=== PATIENT | male | born 1980 | race Caucasian/White ===

== ENCOUNTER → 2020-09-03 | Outpatient (CLI) | payer BC ==
--- NOTE | 2020-09-03 12:29 | US ---
EXAMINATION TYPE: US liver DATE OF EXAM: 09/03/2020 COMPARISON: NONE CLINICAL HISTORY: 40-year-old male R74.01 Elevated liver functions. TECHNIQUE: Multiple sonographic images of the right upper quadrant are obtained. FINDINGS: EXAM MEASUREMENTS: Liver Length: 19.8 cm Gallbladder Wall: 0.3cm CBD: 0.5 cm Right Kidney: 13.9 x 5.2 x 5.3 cm Refrigerating Engineer notes: Gross morbid obesity with extensive overlying bowel gas, technically difficult and very limited study. Pancreas: Obscured by bowel gas. Liver: unable to penetrate well, enlarged. This secondarily limits assessment for focal lesions. Gallbladder: possible sludge, difficult to assess due to patients size and overlying bowel gas CBD: wnl Right Kidney: Somewhat prominent in size, inferior pole obscured by bowel gas. No hydronephrosis. IMPRESSION: 1. Very large patient body habitus and bowel gas limits the exam. 2. Hepatomegaly (19.8 cm) with severe hepatic steatosis. Correlation with LFTs, lipid profile, and pa tient risk factors. 3. No biliary ductal dilatation. There may be some sludge in the gallbladder.
== END | disposition home or self-care (01) ==
LOC: RADUSWWP 08:03
PROVIDERS: ATTEND Family Medicine
DX: K76.0 Fatty (change of) liver, not elsewhere classified (principal); R14.3 Flatulence
CPT/HCPCS: 76705

== ENCOUNTER 2021-12-20 06:42 | Observation (INO) | payer BC ==
[2021-12-20 07:04] VITALS: TEMP 98.2
[2021-12-20] MEDS ORDERED: FAMOTIDINE 20 MG/2 ML VIAL IV STA (07:32)
[2021-12-20] MEDS ORDERED: diphenhydrAMINE 50 MG/ML 1 ML VIAL IVP STA (07:32)
[2021-12-20] MEDS ORDERED: methylPREDNISolone SOD SUCCI 125 MG/2 ML VIAL IV STA (07:32)
[2021-12-20] MEDS ORDERED: SODIUM CHLORIDE 0.9% 1,000 ML IV STA (07:32)
--- NOTE | 2021-12-20 07:41 | ED ---
General Adult HPI - General Chief complaint: ENT Stated complaint: Difficulty Breathing, Possible throat obstruction Time Seen by Provider: 12/20/21 07:19 Source: patient, RN notes reviewed, old records reviewed Mode of arrival: wheelchair - History of Present Illness Initial comments: Patient is a 41-year-old male with past medical history remarkable for hypertension, optic neuritis who presents emergency Department complaining of dysphagia. States it started this morning when he awoke. States it is worse when talking. Denies any shortness of breath. Denies any difficulty breathing. Denies any neck swelling. Denies sore throat. States this is not previously happened to him. Describes it as "I feel Trying to Swallow My Throat." He States He Does Have a History of Large Tonsils As Well As a Large Uvula. This Appears Unchanged. Denies Any Tongue Swelling. Is Not Continued to Drink Anything Morning. Denies Any Recent Dental Infections. Denies Any Fevers or Chills. Has No Other Acute Complaints at This Time. Patient Does Take Lisinopril for Blood Pressure Medication. Denies Any Lip Swelling. Patient is able to speak with me, however in short sentences. No obvious distress. - Related Data Home Medications Medication Instructions Recorded Confirmed Albuterol Inhaler [Ventolin Hfa 2 puff INHALATION RT-Q4H PRN 12/20/21 12/20/21 Inhaler] Cetirizine HCl [Zyrtec] 10 mg PO DAILY 12/20/21 12/20/21 Cholecalciferol [Vitamin D3 (25 50 mcg PO DAILY 12/20/21 12/20/21 Mcg = 1000 Iu)] Latanoprost [Xalatan 0.005%] 1 drop BOTH EYES HS 12/20/21 12/20/21 amLODIPine [Norvasc] 5 mg PO DAILY 12/20/21 12/20/21 lisinopriL [Zestril] 10 mg PO DAILY 12/20/21 12/20/21 Allergies Allergy/AdvReac Type Severity Reaction Status Date / Time No Known Allergies Allergy Verified 12/20/21 09:39 Review of Systems ROS Statement: Those systems with pertinent positive or pertinent negative responses have been documented in the HPI. Review of Systems: CONST: Denies fever EYES: Denies blurry vision ENT: Denies nasal congestion C/V: Denies Chest pain RESP: Denies shortness of breath GI: Denies abdominal pain : Denies dysuria SKIN: Denies rash. MSK: Denies joint pain. NEURO: Denies headache ROS Other: All systems not noted in ROS Statement are negative. Past Medical History Past Medical History: Hypertension History of Any Multi-Drug Resistant Organisms: None Reported Past Surgical History: No Surgical Hx Reported Past Psychological History: No Psychological Hx Reported Smoking Status: Never smoker Past Alcohol Use History: None Reported Past Drug Use History: None Reported General Exam - General Exam Comments Initial Comments: General: Appears in no acute distress. HEAD: Normal with no signs of head trauma. EYES: PERRLA, EOMI, conjunctiva normal, no discharge. ENT: Hearing grossly intact, normal oropharynx. No neck swelling. No tongue or floor of mouth swelling. No stridor on auscultation. Large, however but not obstructive uvula as well as bilateral tonsils. Patient states this is old. RESPIRATORY: Clear breath sounds bilaterally. No wheezes, rales, or rhonchi. C/V: Regular rate and rhythm. S1 and S2 auscultated, no edema, peripheral pulses 2+ and intact throughout ABD: Abd is soft, nontender, nondistended EXT: Normal range of motion, no obvious deformity SKIN: No rashes or lesions observed on exposed skin. NEURO: Alert and oriented 4. No focal deficits. Course Vital Signs 12/20/21 12/20/21 06:57 09:07 Temperature 98.2 F Pulse Rate 102 H 92 Respiratory 20 14 Rate Blood Pressure 118/69 148/99 O2 Sat by Pulse 99 98 Oximetry Medical Decision Making - Medical Decision Making Based on the patient's presentation and physical exam, he appears to be having isolated dysphasia at this time. Has not attempted to drink anything. No other obvious findings on exam. However we will obtain a CT soft tissue of the neck. He does have possibly a history of MS with a history of optic neuritis for CT brain also be obtained. Basic labs will be obtained. He'll be given IV steroids as well as Benadryl and famotidine. He was in agreement this plan .Patient is tolerating oral secretions and protecting his airway at this time. Patient's laboratory studies are relatively unremarkable. Chest x-ray shows no obvious acute cardiopulmonary process. Brain CT shows no acute intracranial process. Soft tissue neck CT with contrast is relatively indeterminant. This showed the enlarged nasal pharyngeal tonsil soft tissue, which patient states is chronic for him. No obvious esophageal abnormality. No obvious abnormality to explain his current symptoms. On reevaluation, patient is speaking a little bit better, however states he still has the sensation when he tries to swallow his secretions. I did attempt a small sip of water, which the patient states he had dysphagia as well as odynophagia with. Due to difficulty with swallowing, and my suspicion for possible achalasia with esophageal possibility like stricture, would like to obtain a GI consult will admit the patient to the hospital for likely EGD. He was in agreement this plan. I spoke with the admitting team, observation on-call team [facility] who accepted the patient. Consult was placed to Dr. Bruce. Was placed on maintenance fluids, and made nothing by mouth. Patient still tolerating his secretions at this time. - Lab Data Result diagrams: 12/20/21 07:40 12/20/21 07:40 Lab Results 12/20/21 12/20/21 Range/Units 07:40 07:40 WBC 7.1 (3.8-10.6) k/uL RBC 5.18 (4.30-5.90) m/uL Hgb 14.7 (13.0-17.5) gm/dL Hct 46.0 (39.0-53.0) % MCV 88.7 (80.0-100.0) fL MCH 28.3 (25.0-35.0) pg MCHC 31.9 (31.0-37.0) g/dL RDW 13.3 (11.5-15.5) % Plt Count 284 (150-450) k/uL MPV 7.4 Neutrophils % 52 % Lymphocytes % 35 % Monocytes % 8 % Eosinophils % 3 % Basophils % 1 % Neutrophils # 3.7 (1.3-7.7) k/uL Lymphocytes # 2.5 (1.0-4.8) k/uL Monocytes # 0.5 (0-1.0) k/uL Eosinophils # 0.2 (0-0.7) k/uL Basophils # 0.1 (0-0.2) k/uL Sodium 141 (137-145) mmol/L Potassium 4.2 (3.5-5.1) mmol/L Chloride 104 (98-107) mmol/L Carbon Dioxide 27 (22-30) mmol/L Anion Gap 10 mmol/L BUN 17 (9-20) mg/dL Creatinine 0.70 (0.66-1.25) mg/dL Est GFR (CKD-EPI)AfAm >90 (>60 ml/min/1.73 sqM) Est GFR (CKD-EPI)NonAf >90 (>60 ml/min/1.73 sqM) Glucose 169 H (74-99) mg/dL Calcium 9.7 (8.4-10.2) mg/dL Disposition Clinical Impression: Achalasia, Dysphagia Disposition: ADMITTED IP TO THIS HOSP Condition: Stable Time of Disposition: 08:50
[2021-12-20 07:57] LABS: Basophils # (A) 0.1 k/uL (0-0.2); Basophils % (A) 1 %; Eosinophils # (A) 0.2 k/uL (0-0.7); Eosinophils % (A) 3 %; HGB 14.7 gm/dL (13.0-17.5); Lymphocytes # (A) 2.5 k/uL (1.0-4.8); Lymphocytes % (A) 35 %; MCH 28.3 pg (25.0-35.0); MCHC 31.9 g/dL (31.0-37.0); MCV 88.7 fL (80.0-100.0); Mean Platelet Volume 7.4; Monocytes # (A) 0.5 k/uL (0-1.0); Monocytes % (A) 8 %; Neutrophils # (A) 3.7 k/uL (1.3-7.7); Neutrophils % (A) 52 %; Platelet Count 284 k/uL (150-450); RBC 5.18 m/uL (4.30-5.90); RDW 13.3 % (11.5-15.5); WBC 7.1 k/uL (3.8-10.6)
[2021-12-20 08:12] LABS: African American GFR (CKD) >90 (>60 ml/min/1.73 sqM); Anion Gap 10 mmol/L; Blood Urea Nitrogen 17 mg/dL (9-20); Calcium 9.7 mg/dL (8.4-10.2); Carbon Dioxide 27 mmol/L (22-30); Chloride 104 mmol/L (98-107); Glucose 169 mg/dL (74-99); Non-African American GFR(CKD) >90 (>60 ml/min/1.73 sqM); Potassium 4.2 mmol/L (3.5-5.1); Sodium 141 mmol/L (137-145)
--- NOTE | 2021-12-20 08:28 | CT ---
EXAMINATION TYPE: CT brain wo con DATE OF EXAM: 12/20/2021 COMPARISON: None HISTORY: 41-year-old male dysphagia, possible history of MS TECHNIQUE: Examination was done in axial plane without intravenous contrast. Coronal and sagittal r econstructions performed. CT DLP: 1058 mGycm Automated exposure control for dose reduction was used. FINDINGS: There is no evidence of acute intracranial hemorrhage, acute ischemic changes, mass, mass-effect, or extra-axial fluid collection. There is no effacement of cerebral sulci or basal subarachnoid cister ns. There is no hydrocephalus. There is no midline shift. Otdd-white matter distinction is preserv ed. 2.2 cm mucous retention cyst left maxillary sinus. Trace mucosal thickening anterior ethmoid air cell s. Mastoid air cells are well pneumatized. Orbits and globes are intact. IMPRESSION: No acute intracranial abnormality seen.
--- NOTE | 2021-12-20 08:29 | CT ---
EXAMINATION TYPE: CT soft tissue neck w con DATE OF EXAM: 12/20/2021 8:18 AM COMPARISON: None available HISTORY: dysphagia CT DLP: 1253.6 mGycm Automated exposure control for dose reduction was used. CONTRAST: CT scan of the neck is performed following with IV Contrast, patient injected with 100 mL of Isovue 3 00. Axial images are obtained, coronal and sagittal reformatted images are reviewed. FINDINGS: Thickened nasopharyngeal soft tissue, nonspecific and could be related to enlarged nasopharyngeal ton sils, please correlate clinically. Contracted pharyngeal wall with reduced caliber of the oropharynge al lumen, containing fluid within, possibly due to deglutition at the time of the scan. Underlying ph aryngeal lesion can't be excluded by this CT scan. Suboptimal assessment of the palatine tonsils. Unremarkable epiglottis. Slightly enlarged lingual ton sils. Unremarkable larynx, trachea and visualized portion of the esophagus. Unremarkable thyroid glan d. Symmetrical unremarkable parotid and submandibular salivary glands. Prominent subcentimeter bilateral cervical and submandibular lymph nodes, nonspecific. Patent major n cass vessels. Mucosal thickening of the maxillary sinuses. Unremarkable prevertebral soft tissue. No a ggressive bone lesion. IMPRESSION: Enlarged nasopharyngeal soft tissue likely due to enlarged nasopharyngeal tonsils. Apparently enlarge d lingual tonsils. Suboptimal assessment of the oropharynx containing fluid within, with suboptimal a ssessment of the palatine tonsils as described above. Underlying pharyngeal abnormality cannot be exc luded by this CT scan, please correlate clinically. Other incidental findings as described above.
--- NOTE | 2021-12-20 08:29 | XR ---
EXAMINATION TYPE: XR chest 1V DATE OF EXAM: 12/20/2021 COMPARISON: NONE HISTORY: 41-year-old male with dysphagia, throat swelling TECHNIQUE: Single frontal view of the chest is obtained. FINDINGS: Heart upper limits of normal in size. Aorta and pulmonary vasculature within normal limits. Some stra ndy atelectasis of the left lower lung. Otherwise, no consolidation or pleural effusion. IMPRESSION: Borderline heart size. Some strandy atelectasis of the left lower lung. Otherwise, no acute process s een.
[2021-12-20] MEDS ORDERED: NALOXONE 0.4 MG/ML 1 ML VIAL IV PRN (08:59)
[2021-12-20] MEDS ORDERED: SODIUM CHLORIDE 0.9% 1,000 ML IV SCH (09:00)
--- NOTE | 2021-12-20 11:08 | P.CONS ---
History of Present Illness - Reason for Consult Consult date: 12/20/21 Dysphagia, achalasia Requesting physician: Lyle Mckeon - Chief Complaint Difficulty breathing, difficulty swallowing - History of Present Illness This is a 41-year-old male who presented to the emergency department this morning with complaints of feeling as though his neck and throat were swollen, having some difficulty with swallowing but does go down, and cough. Past medical history includes optic neuritis, obstructive sleep apnea with recent CPAP use, and orbit obesity. States he is having difficult time clearing his throat. He is denying any previous similar symptoms. No new medications. Denies any history of peptic ulcer disease, GERD, dysphagia. Gastroenterology was consulted to evaluate patient for possible achalasia, dysphagia. Patient denies any previous history of EGD or colonoscopy. His heart as his workup in the emergency department he underwent a CT of the soft tissue of the neck with contrast that showed enlarged nasopharyngeal soft tissue likely due to enlarged nasopharyngeal tonsils. Underlying pharyngeal abnormality cannot be excluded by this CT. Review of Systems REVIEW OF SYSTEMS: CARDIOPULMONARY: No chest pain. Complains of some difficulty with breathing, has cough that he feels he is unable to clear his airway. Gastrointestinal: No acid reflux or burning. Difficulty with swallowing but feels as though it's in his throat and neck. No esophageal discomfort. No abdominal pain or epigastric pain. No nausea or vomiting. No hematemesis, coffee-ground emesis. No rectal bleeding, or melena. GENITOURINARY: No dysuria or hematuria. MUSCULOSKELETAL: Reports normal range of motion., Joint pain. SKIN: No rashes. No jaundice. ENDOCRINE: No chills, fevers. No excessive weight gain or loss. No polydipsia or polyuria. PSYCHIATRIC: Unremarkable. NEUROLOGY: No change in mental status. Denies dizziness, headache. ENT: Vision unremarkable. CONSTITUTIONAL: No recent weight loss. No fever, chills, night sweats. Past Medical History Past Medical History: Hypertension History of Any Multi-Drug Resistant Organisms: None Reported Past Surgical History: No Surgical Hx Reported Past Psychological History: No Psychological Hx Reported Smoking Status: Never smoker Past Alcohol Use History: None Reported Past Drug Use History: None Reported Medications and Allergies Home Medications Medication Instructions Recorded Confirmed Type Albuterol Inhaler [Ventolin Hfa 2 puff INHALATION RT-Q4H PRN 12/20/21 12/20/21 History Inhaler] Cetirizine HCl [Zyrtec] 10 mg PO DAILY 12/20/21 12/20/21 History Cholecalciferol [Vitamin D3 (25 50 mcg PO DAILY 12/20/21 12/20/21 History Mcg = 1000 Iu)] Latanoprost [Xalatan 0.005%] 1 drop BOTH EYES HS 12/20/21 12/20/21 History amLODIPine [Norvasc] 5 mg PO DAILY 12/20/21 12/20/21 History lisinopriL [Zestril] 10 mg PO DAILY 12/20/21 12/20/21 History Allergies Allergy/AdvReac Type Severity Reaction Status Date / Time No Known Allergies Allergy Verified 12/20/21 09:39 Physical Exam Vitals: Vital Signs Temp Pulse Resp BP Pulse Ox 12/20/21 09:07 92 14 148/99 98 12/20/21 06:57 98.2 F 102 H 20 118/69 99 Intake and Output 12/19/21 12/20/21 12/20/21 22:59 06:59 14:59 Other: Weight 199.581 kg General appearance: The patient is alert, oriented, appears in no acute distress. Morbidly obese. HET: Head is normocephalic and atraumatic. Conjunctiva pink. Sclera anicteric. Neck: Supple without lymphadenopathy. Trachea midline. Heart: S1 S2. Regular rate and rhythm. Lungs: Clear to auscultation. Abdomen: Soft, nontender, nondistended with bowel sounds. No guarding or rigidity. Skin: No rashes. No jaundice. Extremities: Normal skin color and turgor. No pedal edema. Neurological: No focal deficits. Alert and oriented x3. Results CBC & Chem 7: 12/20/21 07:40 12/20/21 07:40 Labs: Abnormal Lab Results - Last 24 Hours (Table) 12/20/21 Range/Units 07:40 Glucose 169 H (74-99) mg/dL Comments: CT soft tissue neck with contrast: Enlarged nasopharyngeal soft tissues likely due to enlarged nasopharyngeal tonsils. Apparently enlarged lingual tonsils. Suboptimal assessment of the oropharynx containing fluid within, with suboptimal assessment of the palatine tonsils as described above. Underlying pharyngeal abnormality cannot be excluded by this computed tomography scan please correlate clinically. CT brain: No acute intracranial abnormality seen. Assessment and Plan (1) Dysphagia Narrative/Plan: 41-year-old male who presented to the emergency department with complaints of difficulty with breathing, throat swelling and cough and difficulty with swallowing. Patient states it feels like his throat is full he is unable to clear his secretions with his cough and feels like difficulty with swallowing but at the level of the throat. He denies any history of acid reflux, peptic ulcer disease, denies any pain with swallowing within the esophageal region. S tates he is able to swallow liquids but it does take some time to get it down at the back of the throat. Denies any previous history of nasopharyngeal dysfunction. States he does know that he has enlarged tonsils but does not follow with an ENT. Denies any new medications or ALLERGIC reactions. Denies abdominal pain or epigastric pain. He had a CT of the soft tissue of the neck that is showing a large nasopharyngeal soft tissue likely due to enlarged nasopharyngeal tonsils however underlying pharyngeal abnormality cannot be excluded by computed tomography scan. I do not believe at this time patient is requiring evaluation by EGD and would recommend ENT to first evaluate patient for possible nasopharyngeal obstruction/abnormality. Current Visit: Yes Status: Acute Code(s): R13.10 - DYSPHAGIA, UNSPECIFIED SNOMED Code(s): 98584170 (2) Morbidly obese Current Visit: Yes Status: Acute Code(s): E66.01 - MORBID (SEVERE) OBESITY DUE TO EXCESS CALORIES SNOMED Code(s): 517876482 (3) Localized soft tissue swelling Narrative/Plan: Recommend ENT consultation and evaluation for enlarged nasopharyngeal soft tissue possible underlying pharyngeal abnormality Current Visit: Yes Status: Acute Code(s): R22.9 - LOCALIZED SWELLING, MASS AND LUMP, UNSPECIFIED SNOMED Code(s): 701283037 (4) Obstructive sleep apnea on CPAP Current Visit: Yes Status: Acute Code(s): G47.33 - OBSTRUCTIVE SLEEP APNEA (ADULT) (PEDIATRIC); Z99.89 - DEPENDENCE ON OTHER ENABLING MACHINES AND DEVICES SNOMED Code(s): 92378041 Plan: 1. Keep nothing by mouth 2. ENT consultation ordered, appreciate their recommendations 3. Protonix 40 mg daily GI prophylaxis 4. No plans on endoscopic evaluation at this time, further recommendations forthcoming based on clinical course Thank you for this consultation, we will continue to follow. Dr. Yuridia Bruce I agree with the dictator's note, documented as a scribe by Sherrell Mata.
--- NOTE | 2021-12-20 15:05 | P.HPIM ---
History of Present Illness H&P Date: 12/20/21 History of Presenting Illness: Patient is a very pleasant 41-year-old male with a past medical history of hypertension, morbid obesity and obstructive sleep apnea CPAP dependent nightly. He presented to the emergency department with a chief complaint of dysphagia. Patient reports this began initially happening throughout the night when he recently got his new CPAP machine. Patient reports it feels as though he is being choked and suffocated while sleeping. Patient reports he has not adjusting to it very well. Patient reports last night he began again having these difficulties and took some cold medicine as he thought maybe he was just getting congested and that would help. Patient reports however this morning upon awakening he felt as though he could not swallow as his throat was closing in on itself. Patient denies any recent medication changes, reports being on lisinopril greater than 1 year and never having any difficulties. Patient also reports he takes his medication in the morning and did not begin having these issues until after putting his CPAP on overnight. Patient denies any new foods or previously known ALLERGIES. He denied experiencing any face, tongue, or lip swelling or noticing any rashes. Patient denied feeling short of breath, having chest pain, palpitations, or experiencing any nausea/vomiting. Patient does report previously known enlarged tonsils. Currently airway is patent, patient denies difficulties with maintaining airway or clearing secretions. Upon arrival to the emergency department patient was given cocktail consisting of Solu-Medrol, Pepcid, and Benadryl. Chest x-ray completed revealing some strandy atelectasis of left lower lung otherwise negative for acute cardiopulmonary process. CT brain negative for acute intercranial process. CBC and BMP unremarkable. He underwent CT soft tissues of neck which revealed a large nasopharyngeal soft tissue likely due to a large nasopharyngeal tonsils accompanied by and large lingual tonsils, suboptimal study. Patient was admitted under our services with consult to gastroenterology. Review of systems: Pertinent positives and negatives as discussed in HPI, a complete review of systems was performed and all other systems are negative. Physical exam: Vital signs reviewed and stable. General: Nontoxic, no distress and appears stated age. Morbidly obese Derm: Skin warm and dry, normal coloration for ethnicity. Head: Atraumatic, normocephalic and symmetric. Upon examination of oropharynx, patient with elongated uvula and enlarged tonsils bilaterally Eyes: EOMs intact, no lid lag, and anicteric sclera Mouth: no lip lesions, mucus membranes moist Cardiovascular: regular rate and rhythm with normal S1S2, no murmur, positive posterior tibial pulses bilaterally, and cap refill < 2 seconds. Lungs: Respirations even, regular, and unlabored on room air. Lungs CTA bilaterally, no rhonchi, no rales, no wheezing, and no accessory muscle usage. Abdominal: soft, nontender to palpation, no guarding, no appreciable organomegaly Ext: ROM intact. No gross muscle atrophy, no edema, no contractures Neuro: Speech clear, face symmetrical and CN II-XII grossly intact with no noted focal neuro deficits Psych: Alert and oriented to person, place, time, and situation. Appropriate and pleasant affect. Assessment and Plan of Care: Dysphagia -NPO until cleared by GI. -Patient will likely need follow-up outpatient with ENT to be evaluated for possible tonsillectomy. -Aspiration precautions -PO challenge once cleared by GI. Hypertension -Monitor vital signs and continue daily medication regimen. Obstructive sleep apnea -Continue use of home CPAP nightly and while napping. Morbid obesity with BMI 55.0 kg/m. -Recommend outpatient weight management program. The patient is admitted with an anticipated less than 2 midnight stay for evaluation of dysphagia. CODE STATUS: Full code DVT prophylaxis: SCDs and early ambulation Discussed with: Patient and RN Anticipated discharge date: Possibly later this afternoon versus tomorrow morning Anticipated discharge place: Home A total of 40 minutes was spent on the care of this complex patient more than 50% of the time was spent in counseling and care coordination. Past Medical History Past Medical History: Hypertension History of Any Multi-Drug Resistant Organisms: None Reported Past Surgical History: No Surgical Hx Reported Past Psychological History: No Psychological Hx Reported Smoking Status: Never smoker Past Alcohol Use History: None Reported Past Drug Use History: None Reported Medications and Allergies Home Medications Medication Instructions Recorded Confirmed Type Albuterol Inhaler [Ventolin Hfa 2 puff INHALATION RT-Q4H PRN 12/20/21 12/20/21 History Inhaler] Cetirizine HCl [Zyrtec] 10 mg PO DAILY 12/20/21 12/20/21 History Cholecalciferol [Vitamin D3 (25 50 mcg PO DAILY 12/20/21 12/20/21 History Mcg = 1000 Iu)] Latanoprost [Xalatan 0.005%] 1 drop BOTH EYES HS 12/20/21 12/20/21 History amLODIPine [Norvasc] 5 mg PO DAILY 12/20/21 12/20/21 History lisinopriL [Zestril] 10 mg PO DAILY 12/20/21 12/20/21 History Allergies Allergy/AdvReac Type Severity Reaction Status Date / Time No Known Allergies Allergy Verified 12/20/21 09:39 Physical Exam Vitals: Vital Signs Temp Pulse Resp BP Pulse Ox 12/20/21 09:07 92 14 148/99 98 12/20/21 06:57 98.2 F 102 H 20 118/69 99 Intake and Output 12/19/21 12/20/21 12/20/21 22:59 06:59 14:59 Other: Weight 199.581 kg Results CBC & Chem 7: 12/20/21 07:40 12/20/21 07:40 Labs: Abnormal Lab Results - Last 24 Hours (Table) 12/20/21 Range/Units 07:40 Glucose 169 H (74-99) mg/dL
--- NOTE | 2021-12-20 15:08 | P.DS ---
Providers Date of admission: 12/20/21 08:59 Expected date of discharge: 12/20/21 Attending physician: Nata Redding DO Consults: 12/20/21 09:00 Consult Physician Routine Consulting Provider: Christy Bruce Consult Reason/Comments: Achalasia, dysphagia. EGD Do you want consulting provider notified?: Yes 12/20/21 10:47 Consult Physician Urgent Consulting Provider: Victor M Andrews Consult Reason/Comments: possible airway obstruction, enlarged nasopharyngeal soft tissue on CT Do you want consulting provider notified?: Yes Primary care physician: Ethan Cantuqvi Hospital Course: Discharge Diagnosis: Dysphagia, possibly secondary to enlarged tonsils and elongated uvula (patient reports chronic), recommend outpatient follow-up with ENT Hypertension. Monitor vital signs and continue daily medication regimen with amlodipine and lisinopril. Obstructive sleep apnea. Continue use of home CPAP nightly and while napping. Morbid obesity with BMI 55.0 kg/m.. Recommend outpatient weight management program. Hospital Course: Patient is a very pleasant 41-year-old male with a past medical history of hypertension, morbid obesity and obstructive sleep apnea CPAP dependent nightly. He presented to the emergency department with a chief complaint of dysphagia. Patient reports this began initially happening throughout the night when he recently got his new CPAP machine. Patient reports it feels as though he is being choked and suffocated while sleeping. Patient reports he has not adjusting to it very well. Patient reports last night he began again having these difficulties and took some cold medicine as he thought maybe he was just getting congested and that would help. Patient reports however this morning upon awakening he felt as though he could not swallow as his throat was closing in on itself. Patient denies any recent medication changes, reports being on lisinopril greater than 1 year and never having any difficulties. Patient also reports he takes his medication in the morning and did not begin having these is sues until after putting his CPAP on overnight. Patient denies any new foods or previously known ALLERGIES. He denied experiencing any face, tongue, or lip swelling or noticing any rashes. Upon arrival to the emergency department patient was given cocktail consisting of Solu-Medrol, Pepcid, and Benadryl. Chest x-ray completed revealing some strandy atelectasis of left lower lung otherwise negative for acute cardiopulmonary process. CT brain negative for acute intercranial process. CBC and BMP unremarkable. He underwent CT soft tissues of neck which revealed a large nasopharyngeal soft tissue likely due to a large nasopharyngeal tonsils accompanied by and large lingual tonsils, suboptimal study. Patient was admitted under our services with consult to gastroenterology. Patient reports having significant improvement and upon bedside exam has no difficulties with swallowing at this time. Patient's swallowing clear liquids, and tolerating regular diet. Patient requesting to follow up outpatient with ENT. This was discussed with gastroenterology and they are in agreement with outpatient follow-up. Patient is medically stable for discharge home, airway is patent, patient denies having any difficulties with breathing, swallowing, or any other complaints at this time. Patient encouraged that he needs to follow up outpatient with ENT as recommended. Physical examination: Patient seen and examined at bedside. Vital signs reviewed and stable. General: Nontoxic, no distress and appears stated age. Morbidly obese Derm: Skin warm and dry, normal coloration for ethnicity. Head: Atraumatic, normocephalic and symmetric. Upon examination of oropharynx, patient with elongated uvula and enlarged tonsils bilaterally Eyes: EOMs intact, no lid lag, and anicteric sclera Mouth: no lip lesions, mucus membranes moist Cardiovascular: regular rate and rhythm with normal S1S2, no murmur, positive posterior tibial pulses bilaterally, and cap refill < 2 seconds. Lungs: Respirations even, regular, and unlabored on room air. Lungs CTA bilaterally, no rhonchi, no rales, no wheezing, and no accessory muscle usage. Abdominal: soft, nontender to palpation, no guarding, no appreciable organomegaly Ext: ROM intact. No gross muscle atrophy, no edema, no contractures Neuro: Speech clear, face symmetrical and CN II-XII grossly intact with no noted focal neuro deficits Psych: Alert and oriented to person, place, time, and situation. Appropriate and pleasant affect. A total of 31 minutes of time were spent preparing this complex discharge summary. Pt was discharged on 12/20/21 at 2:57 PM Patient Condition at Discharge: Stable Plan - Discharge Summary New Discharge Prescriptions: Continue Cetirizine HCl [Zyrtec] 10 mg PO DAILY amLODIPine [Norvasc] 5 mg PO DAILY Latanoprost [Xalatan 0.005%] 1 drop BOTH EYES HS lisinopriL [Zestril] 10 mg PO DAILY Cholecalciferol [Vitamin D3 (25 Mcg = 1000 Iu)] 50 mcg PO DAILY Albuterol Inhaler [Ventolin Hfa Inhaler] 2 puff INHALATION RT-Q4H PRN PRN Reason: Shortness Of Breath Discharge Medication List Albuterol Inhaler [Ventolin Hfa Inhaler] 2 puff INHALATION RT-Q4H PRN 12/20/21 [History] Cetirizine HCl [Zyrtec] 10 mg PO DAILY 12/20/21 [History] Cholecalciferol [Vitamin D3 (25 Mcg = 1000 Iu)] 50 mcg PO DAILY 12/20/21 [History] Latanoprost [Xalatan 0.005%] 1 drop BOTH EYES HS 12/20/21 [History] amLODIPine [Norvasc] 5 mg PO DAILY 12/20/21 [History] lisinopriL [Zestril] 10 mg PO DAILY 12/20/21 [History] Follow up Appointment(s)/Referral(s): Ethan Andrews MD [Primary Care Provider] - 1-2 days Victor M Andrews MD [STAFF PHYSICIAN] - 1 Week Activity/Diet/Wound Care/Special Instructions: Activity: As tolerated. Take breaks as needed. Diet: Heart healthy and carb consistent diet. Avoid salts, or foods with hidden salts such as canned or boxed foods and frozen dinners. Extra salt makes your heart work harder and traps the fluid in your body for longer. Special Instructions: Take all of your medications as directed and remember to keep all of your doctor's appointments and follow-up as needed. It is important to follow up outpatient with ENT physician Dr. Andrews. Thank you for allowing us to participate in your care, it was truly a pleasure having you for our patient!!! Discharge Disposition: HOME SELF-CARE
[2021-12-20 15:16] VITALS: BP 138/99; PULSE 103; RESP 14
[2021-12-21] MEDS ORDERED: PANTOPRAZOLE 40 MG/10 ML VIAL IVP SCH (09:00)
== END 2021-12-20 15:28 | disposition home or self-care (01) ==
LOC: EC 06:42 → 6NMEDSUR 08:59
PROVIDERS: ADMIT Internal Medicine; ATTEND Internal Medicine
DX: R13.10 Dysphagia, unspecified (principal); G47.33 Obstructive sleep apnea (adult) (pediatric); I10 Essential (primary) hypertension; J35.1 Hypertrophy of tonsils; Q38.6 Other congenital malformations of mouth; J39.2 Other diseases of pharynx; K22.0 Achalasia of cardia; J98.11 Atelectasis; H46.9 Unspecified optic neuritis; E66.01 Morbid (severe) obesity due to excess calories; Z68.43 Body mass index [BMI] 50.0-59.9, adult; Z79.899 Other long term (current) drug therapy; Z71.3 Dietary counseling and surveillance
CPT/HCPCS: 96361; 96374; 96375; 99285; 36415; 80048; 85025; 71045; 70491; 70450; G0378; J1200; J2930; Q9967

== ENCOUNTER 2021-12-28 07:42 | Emergency (ER) | payer BC ==
[2021-12-28 07:46] VITALS: BP 162/91; PULSE 89; RESP 14; TEMP 97
[2021-12-28] MEDS ORDERED: methylPREDNISolone SOD SUCCI 125 MG/2 ML VIAL IM ONE (07:59)
--- NOTE | 2021-12-28 08:09 | ED ---
General Adult HPI - General Chief complaint: ENT Stated complaint: throat issues Time Seen by Provider: 12/28/21 07:50 Source: patient, RN notes reviewed, old records reviewed Mode of arrival: ambulatory Limitations: no limitations - History of Present Illness Initial comments: This is a 41-year-old male who presents emergency Department stating he's fi nding. Difficult to talk as tonsils are so large per patient states she was in the hospital week ago and they told him he needed his tonsils out but he is unable to get into the ENT. Patient states he is back today because he is becoming more difficult to eat and swallow again and if he talks more seems to get worse. Patient states steroids did help him at the time. Patient denies any fever chills per patient denies any difficulty breathing. - Related Data Home Medications Medication Instructions Recorded Confirmed Albuterol Inhaler [Ventolin Hfa 2 puff INHALATION RT-Q4H PRN 12/20/21 12/20/21 Inhaler] Cetirizine HCl [Zyrtec] 10 mg PO DAILY 12/20/21 12/20/21 Cholecalciferol [Vitamin D3 (25 50 mcg PO DAILY 12/20/21 12/20/21 Mcg = 1000 Iu)] Latanoprost [Xalatan 0.005%] 1 drop BOTH EYES HS 12/20/21 12/20/21 amLODIPine [Norvasc] 5 mg PO DAILY 12/20/21 12/20/21 lisinopriL [Zestril] 10 mg PO DAILY 12/20/21 12/20/21 Previous Rx's Medication Instructions Recorded Amoxic-Pot Clav 875-125Mg 1 tab PO BID 10 Days #20 tab 12/28/21 [Augmentin 875-125] predniSONE [Deltasone] 40 mg PO DAILY #8 tab 12/28/21 Allergies Allergy/AdvReac Type Severity Reaction Status Date / Time No Known Allergies Allergy Verified 12/28/21 07:45 Review of Systems ROS Statement: Those systems with pertinent positive or pertinent negative responses have been documented in the HPI. ROS Other: All systems not noted in ROS Statement are negative. Past Medical History Past Medical History: Hypertension History of Any Multi-Drug Resistant Organisms: None Reported Past Surgical History: No Surgical Hx Reported Past Psychological History: No Psychological Hx Reported Smoking Status: Never smoker Past Alcohol Use History: None Reported Past Drug Use History: None Reported General Exam - General Exam Comments Initial Comments: GENERAL: Patient is well-developed and well-nourished. Patient is nontoxic and well- hydrated and is in mild distress. ENT: Neck is soft and supple. No significant lymphadenopathy is noted. Oropharynx is clear. Moist mucous membranes. Neck has full range of motion without eliciting any pain. EYES: The sclera were anicteric and conjunctiva were pink and moist. Extraocular movements were intact and pupils were equal round and reactive to light. Eyelids were unremarkable. PULMONARY: Unlabored respirations. Good breath sounds bilaterally. No audible rales rhonchi or wheezing was noted. CARDIOVASCULAR: There is a regular rate and rhythm without any murmurs gallops or rubs. ABDOMEN: Soft and nontender with normal bowel sounds. SKIN: Skin is clear with no lesions or rashes and otherwise unremarkable. NEUROLOGIC: Patient is alert and oriented x3. Cranial nerves II through XII are grossly intact. Motor and sensory are also intact. Normal speech, volume and content. Symmetrical smile. MUSCULOSKELETAL: Normal extremities with adequate strength and full range of motion. LYMPHATICS: No significant lymphadenopathy is noted PSYCHIATRIC: Normal psychiatric evaluation. Limitations: no limitations Course Vital Signs 12/28/21 07:43 Temperature 97.0 F L Pulse Rate 89 Respiratory 14 Rate Blood Pressure 162/91 O2 Sat by Pulse 98 Oximetry Medical Decision Making - Medical Decision Making I spoke with Dr. Limon he agreed to see the patient sometime this week he did recommend steroids and antibiotics for the patient. Disposition Clinical Impression: Enlarged tonsils Disposition: HOME SELF-CARE Condition: Good Instructions (If sedation given, give patient instructions): Tonsillitis (ED) Prescriptions: Amoxic-Pot Clav 875-125Mg [Augmentin 875-125] 1 tab PO BID 10 Days #20 tab predniSONE [Deltasone] 40 mg PO DAILY #8 tab Is patient prescribed a controlled substance at d/c from ED?: No Referrals: Ethan Andrews MD [Primary Care Provider] - 1-2 days Time of Disposition: 08:22
== END 2021-12-28 08:35 | disposition home or self-care (01) ==
LOC: EC 07:42
DX: J35.1 Hypertrophy of tonsils (principal); I10 Essential (primary) hypertension; Z79.899 Other long term (current) drug therapy
CPT/HCPCS: 99282; 96372; J2930

== ENCOUNTER 2022-01-14 07:10 | Emergency (ER) | payer BC ==
[2022-01-14 07:17] VITALS: RESP 20; TEMP 97.5
--- NOTE | 2022-01-14 07:39 | ED ---
General Adult HPI - General Chief complaint: ENT Stated complaint: Throat swelling Time Seen by Provider: 01/14/22 07:15 Source: patient, RN notes reviewed, old records reviewed Mode of arrival: wheelchair Limitations: no limitations - History of Present Illness Initial comments: This is a 41-year-old male who presents emergency Department with complaint that he feels his throat is closing off. Patient's has made a visit her twice before and has followed up with ENT. Patient states yesterday he felt as though his throat was closing off a little but today he felt much worse when he woke up. Patient denies any chest pain difficulty breathing or shortness of breath. Patient states that the sensation feels a little lower than it normally does no rmally it is in the back of his mouth he states it's a little lower into the throat today. Patient denies any fever chills. Patient states he is losing weight as ENT recommended. Patient also states he is on an antibiotic. Patient states she did have a CAT scan previously. - Related Data Home Medications Medication Instructions Recorded Confirmed Albuterol Inhaler [Ventolin Hfa 2 puff INHALATION RT-Q4H PRN 12/20/21 12/20/21 Inhaler] Cetirizine HCl [Zyrtec] 10 mg PO DAILY 12/20/21 12/20/21 Cholecalciferol [Vitamin D3 (25 50 mcg PO DAILY 12/20/21 12/20/21 Mcg = 1000 Iu)] Latanoprost [Xalatan 0.005%] 1 drop BOTH EYES HS 12/20/21 12/20/21 amLODIPine [Norvasc] 5 mg PO DAILY 12/20/21 12/20/21 lisinopriL [Zestril] 10 mg PO DAILY 12/20/21 12/20/21 Previous Rx's Medication Instructions Recorded Amoxic-Pot Clav 875-125Mg 1 tab PO BID 10 Days #20 tab 12/28/21 [Augmentin 875-125] predniSONE [Deltasone] 40 mg PO DAILY #8 tab 12/28/21 Allergies Allergy/AdvReac Type Severity Reaction Status Date / Time No Known Allergies Allergy Verified 01/14/22 07:17 Review of Systems ROS Statement: Those systems with pertinent positive or pertinent negative responses have been documented in the HPI. ROS Other: All systems not noted in ROS Statement are negative. Past Medical History Past Medical History: Hypertension History of Any Multi-Drug Resistant Organisms: None Reported Past Surgical History: No Surgical Hx Reported Past Psychological History: No Psychological Hx Reported Smoking Status: Never smoker Past Alcohol Use History: None Reported Past Drug Use History: None Reported General Exam - General Exam Comments Initial Comments: GENERAL: Patient is well-developed and well-nourished. Patient is nontoxic and well- hydrated and is in mild distress. ENT: Neck is soft and supple. No significant lymphadenopathy is noted. Oropharynx is clear. There doesn't appear to be any tonsillar swelling or erythema. Uvula is not touching any tonsils at this time. Moist mucous membranes. Neck has full range of motion without eliciting any pain. EYES: The sclera were anicteric and conjunctiva were pink and moist. Extraocular movements were intact and pupils were equal round and reactive to light. Eyelids were unremarkable. PULMONARY: Unlabored respirations. Good breath sounds bilaterally. No audible rales rhonchi or wheezing was noted. CARDIOVASCULAR: There is a regular rate and rhythm without any murmurs gallops or rubs. ABDOMEN: Soft and nontender with normal bowel sounds. SKIN: Skin is clear with no lesions or rashes and otherwise unremarkable. NEUROLOGIC: Patient is alert and oriented x3. Cranial nerves II through XII are grossly intact. Motor and sensory are also intact. Normal speech, volume and content. Symmetrical smile. MUSCULOSKELETAL: Normal extremities with adequate strength and full range of motion. No lower extremity swelling or edema. No calf tenderness. LYMPHATICS: No significant lymphadenopathy is noted PSYCHIATRIC: Mild anxiety Limitations: no limitations Course Vital Signs 01/14/22 07:14 Temperature 97.5 F L Pulse Rate 87 Respiratory 20 Rate Blood Pressure 139/79 O2 Sat by Pulse 98 Oximetry Medical Decision Making - Medical Decision Making EKG shows sinus rhythm at 86 bpm ME interval is 140 QRS is 99 QT interval 370 QTC is 422. Patient's EKG shows no ST segment elevation or depression. Chest x-ray shows no acute abnormality. Patient was pulse oximetry 98-99% on room air. After I spoke with the patient he did calm down he was much more relaxed and felt as though he could breathe better. Patient states he wonders if there is a component of anxiety with this I told him to follow up with his primary medical care doctor for that. After patient was discharged started indicating to nursing that he was feeling unsafe go home and eventually stated that he felt like hanging himself at the cords in the room. Patient will be evaluated by [facility] - Lab Data Lab Results 01/14/22 Range/Units 09:52 Urine Opiates Screen Not Detected (NotDetected) Ur Oxycodone Screen Not Detected (NotDetected) Urine Methadone Screen Not Detected (NotDetected) Ur Propoxyphene Screen Not Detected (NotDetected) Ur Barbiturates Screen Not Detected (NotDetected) U Tricyclic Antidepress Not Detected (NotDetected) Ur Phencyclidine Scrn Not Detected (NotDetected) Ur Amphetamines Screen Not Detected (NotDetected) U Methamphetamines Scrn Not Detected (NotDetected) U Benzodiazepines Scrn Not Detected (NotDetected) Urine Cocaine Screen Not Detected (NotDetected) U Marijuana (THC) Screen Not Detected (NotDetected) Disposition Clinical Impression: Anxiety about health Disposition: HOME SELF-CARE Instructions (If sedation given, give patient instructions): Anxiety (ED) Is patient prescribed a controlled substance at d/c from ED?: No Referrals: Ethan Andrews MD [Primary Care Provider] - 1-2 days Time of Disposition: 08:24
--- NOTE | 2022-01-14 08:19 | XR ---
EXAMINATION TYPE: XR chest 2V DATE OF EXAM: 01/14/2022 COMPARISON: 12/21/2019 HISTORY: 41-year-old male with difficulty breathing, TECHNIQUE: PA and lateral views FINDINGS: Heart upper limits of normal in size, likely accentuated by large body habitus. Mild interstitial pro minence is unchanged. Some strandy atelectasis left base. No consolidation or pleural effusion. IMPRESSION: No definite acute process.
[2022-01-14] MEDS ORDERED: LORazepam 1 MG TAB PO STA ×2 (08:37→11:38)
[2022-01-14 10:42] LABS: Amphetamine Screen,Urine Not Detected (NotDetected); Barbiturate Screen,Urine Not Detected (NotDetected); Benzodiazepines Screen,Urine Not Detected (NotDetected); Cocaine Screen,Urine Not Detected (NotDetected); Methadone Screen, Urine Not Detected (NotDetected); Opiate Screen,Urine Not Detected (NotDetected); Oxycodone Screen, Urine Not Detected (NotDetected); Phencyclidine Screen,Urine Not Detected (NotDetected); Tricyclic Antidepressant,Urine Not Detected (NotDetected); Urn Cannabinoid Scrn Not Detected (NotDetected)
[2022-01-14 11:48] VITALS: BP 147/87; PULSE 100
== END 2022-01-14 11:48 | disposition home or self-care (01) ==
LOC: EC 07:10
DX: F41.9 Anxiety disorder, unspecified (principal); I10 Essential (primary) hypertension
CPT/HCPCS: 71046; 80306; 82075; 93005

== ENCOUNTER 2022-03-05 16:46 | Emergency (ER) | payer BC ==
[2022-03-05] MEDS ORDERED: SODIUM CHLORIDE 0.9% 1,000 ML IV ONE (18:37)
[2022-03-05] MEDS ORDERED: IBUPROFEN 600 MG TAB PO STA (18:37)
[2022-03-05 19:29] LABS: Basophils # (A) 0.1 k/uL (0-0.2); Basophils % (A) 0 %; Eosinophils # (A) 0.8 k/uL (0-0.7); Eosinophils % (A) 4 %; Lymphocytes % (A) 6 %; MCH 29.2 pg (25.0-35.0); MCHC 33.3 g/dL (31.0-37.0); MCV 87.9 fL (80.0-100.0); Mean Platelet Volume 7.7; Monocytes % (A) 6 %; Neutrophils # (A) 15.4 k/uL (1.3-7.7); Neutrophils % (A) 83 %; Platelet Count 278 k/uL (150-450); RBC 5.12 m/uL (4.30-5.90); RDW 13.4 % (11.5-15.5); WBC 18.5 k/uL (3.8-10.6)
[2022-03-05 19:32] LABS: ALT 396 U/L (4-49); AST 315 U/L (17-59); African American GFR (CKD) >90 (>60 ml/min/1.73 sqM); Albumin 4.7 g/dL (3.5-5.0); Alkaline Phosphatase 48 U/L (38-126); Anion Gap 15 mmol/L; Blood Urea Nitrogen 12 mg/dL (9-20); Calcium 9.6 mg/dL (8.4-10.2); Carbon Dioxide 23 mmol/L (22-30); Chloride 101 mmol/L (98-107); Glucose 143 mg/dL (74-99); Lipase 32 U/L (23-300); Non-African American GFR(CKD) >90 (>60 ml/min/1.73 sqM); Sodium 139 mmol/L (137-145); Total Bilirubin 1.5 mg/dL (0.2-1.3); Total Protein 7.7 g/dL (6.3-8.2)
[2022-03-05 19:38] LABS: Appearance,Urine Cloudy (Clear); Bacteria,Urine Rare /hpf; Bilirubin,Urine 1+ (Negative); Blood,Urine Negative (Negative); Color,Urine Orange; Glucose,Urine (UA) Trace (Negative); Hyaline Casts,Urine 146 /lpf (0-2); Ketones,Urine Trace (Negative); Leukocyte Esterase,Urine Negative (Negative); Mucus,Urine Many /hpf; Nitrite,Urine Negative (Negative); Protein,Urine 2+ (Negative); RBC,Urine 2 /hpf (0-5); Specific Gravity,Urine 1.043 (1.001-1.035); Squamous Epithelial Cell,Urine <1 /hpf (0-4); WBC,Urine 2 /hpf (0-5)
[2022-03-05 19:39] LABS: Potassium 4.2 mmol/L (3.5-5.1)
--- NOTE | 2022-03-05 20:31 | CT ---
EXAMINATION TYPE: CT abdomen pelvis w con DATE OF EXAM: 03/05/2022 COMPARISON: None HISTORY: abd pain CT DLP: 4651.4 mGycm Automated exposure control for dose reduction was used. CONTRAST: Performed with IV Contrast, patient injected with 100ml mL of Isovue 300. Images obtained from the diaphragm to the floor of the pelvis with the IV contrast. The lung bases are clear. There is no pleural effusion. Heart size is normal. No pericardial effusion There is no adrenal mass. Kidneys show satisfactory contrast opacification. There is no hydronephrosi s. Ureters are not dilated. There is no retroperitoneal adenopathy. The bladder distends smoothly. No inguinal hernia. No free fluid in the pelvis. No pelvic mass. Appendix appears normal. Delayed images show normal renal excretion. There is no mesenteric edema. No ascites or free air. No sign of a bowel obstruction. The lumbar vert ebra appear intact. No compression fracture. Facet joints are intact. Bony pelvis is intact. IMPRESSION: Negative CT scan of the abdomen and pelvis.
[2022-03-05] MEDS ORDERED: ONDANSETRON 4 MG ODT STARTER PACK 2 TAB BTL PO STA (21:02)
--- NOTE | 2022-03-05 21:02 | ED ---
Fever HPI - General Chief Complaint: Fever Stated Complaint: Fever Time Seen by Provider: 03/05/22 16:55 Source: patient Mode of arrival: ambulatory Limitations: no limitations - History of Present Illness Initial Comments: 41-year-old male with past history of hypertension presents emergency departments with complaints of not feeling well. States that this morning he woke up and had a fever, nausea with diarrhea. He has been taking Tylenol. He is able to eat and drink and hold down fluids. Admits to profuse watery diarrhea. No black or bloody stools. No sick contacts. Does question whether he ate tainted foods. Has some generalized abdominal aches without significant pain. No changes in his urination to include dysuria, hematuria or difficult voiding. No ear pain, sore throat, cough or shortness of breath. No other alleviating, precipitating modifying factors - Related Data Home Medications Medication Instructions Recorded Confirmed Albuterol Inhaler [Ventolin Hfa 2 puff INHALATION RT-Q4H PRN 12/20/21 12/20/21 Inhaler] Cetirizine HCl [Zyrtec] 10 mg PO DAILY 12/20/21 12/20/21 Cholecalciferol [Vitamin D3 (25 50 mcg PO DAILY 12/20/21 12/20/21 Mcg = 1000 Iu)] Latanoprost [Xalatan 0.005%] 1 drop BOTH EYES HS 12/20/21 12/20/21 amLODIPine [Norvasc] 5 mg PO DAILY 12/20/21 12/20/21 lisinopriL [Zestril] 10 mg PO DAILY 12/20/21 12/20/21 Previous Rx's Medication Instructions Recorded Amoxic-Pot Clav 875-125Mg 1 tab PO BID 10 Days #20 tab 12/28/21 [Augmentin 875-125] predniSONE [Deltasone] 40 mg PO DAILY #8 tab 12/28/21 Allergies Allergy/AdvReac Type Severity Reaction Status Date / Time No Known Allergies Allergy Verified 03/05/22 16:55 Review of Systems ROS Statement: Those systems with pertinent positive or pertinent negative responses have been documented in the HPI. ROS Other: All systems not noted in ROS Statement are negative. Past Medical History Past Medical History: Hypertension History of Any Multi-Drug Resistant Organisms: None Reported Past Surgical History: No Surgical Hx Reported Past Psychological History: No Psychological Hx Reported Smoking Status: Never smoker Past Alcohol Use History: None Reported Past Drug Use History: None Reported General Exam Limitations: no limitations General appearance: alert, in no apparent distress Head exam: Present: atraumatic, normocephalic, normal inspection Eye exam: Present: normal appearance, PERRL, EOMI. Absent: scleral icterus, conjunctival injection, periorbital swelling ENT exam: Present: normal exam, mucous membranes moist Neck exam: Present: normal inspection. Absent: tenderness, meningismus, l ymphadenopathy Respiratory exam: Present: normal lung sounds bilaterally. Absent: respiratory distress, wheezes, rales, rhonchi, stridor Cardiovascular Exam: Present: normal rhythm, tachycardia, normal heart sounds. Absent: systolic murmur, diastolic murmur, rubs, gallop, clicks GI/Abdominal exam: Present: soft, normal bowel sounds. Absent: distended, tenderness, guarding, rebound, rigid Extremities exam: Present: normal inspection, full ROM, normal capillary refill. Absent: tenderness, pedal edema, joint swelling, calf tenderness Back exam: Present: normal inspection Neurological exam: Present: alert, oriented X3, CN II-XII intact Psychiatric exam: Present: normal affect, normal mood Skin exam: Present: warm, dry, intact, normal color. Absent: rash Course Vital Signs 03/05/22 03/05/22 16:53 21:09 Temperature 101.2 F H 98.2 F Pulse Rate 116 H 75 Respiratory 20 16 Rate Blood Pressure 123/77 104/60 O2 Sat by Pulse 96 95 Oximetry Medical Decision Making - Medical Decision Making Upon arrival patient was placed into room 24. A thorough history and physical exam was performed. IV access is established patient is given a liter bolus of normal saline. He is also given Motrin for fever control. Laboratory studies were conducted which inserted white count of 18.5. Liver enzymes elevated at 315 and 396. Total bilirubin 1.5. UA demonstrates trace ketones and rare bacteria. Covid influenza-negative. CT the patient's abdomen pelvis demonstrates no acute process. Patient is reevaluated. Denies having any diarrhea while in the emergency department. Feels improved at this time. Patient reports that he was in his primary care office this past week and had elevated liver enzymes therefore was referred to GI. As the liver enzymes may be a chronic issue for the patient I did discuss the diagnosis, differential and treatment options. At this time the patient may be discharged home. He is instructed to take Tylenol every 6 hours for his fever. May take Zofran and Imodium for his nausea and vomiting. He does have a follow-up appointment for h is primary care on Monday. Instructed that he needs his labs repeated regarding his liver enzymes. Return to the emergency room for any new or worsening symptoms. Patient agreeable was discharged home in stable condition - Lab Data Result diagrams: 03/05/22 19:12 03/05/22 19:12 Lab Results 03/05/22 03/05/22 03/05/22 Range/Units 17:04 19:12 19:12 WBC 18.5 H (3.8-10.6) k/uL RBC 5.12 (4.30-5.90) m/uL Hgb 15.0 (13.0-17.5) gm/dL Hct 45.0 (39.0-53.0) % MCV 87.9 (80.0-100.0) fL MCH 29.2 (25.0-35.0) pg MCHC 33.3 (31.0-37.0) g/dL RDW 13.4 (11.5-15.5) % Plt Count 278 (150-450) k/uL MPV 7.7 Neutrophils % 83 % Lymphocytes % 6 % Monocytes % 6 % Eosinophils % 4 % Basophils % 0 % Neutrophils # 15.4 H (1.3-7.7) k/uL Lymphocytes # 1.0 (1.0-4.8) k/uL Monocytes # 1.0 (0-1.0) k/uL Eosinophils # 0.8 H (0-0.7) k/uL Basophils # 0.1 (0-0.2) k/uL Sodium 139 (137-145) mmol/L Potassium 4.2 (3.5-5.1) mmol/L Chloride 101 (98-107) mmol/L Carbon Dioxide 23 (22-30) mmol/L Anion Gap 15 mmol/L BUN 12 (9-20) mg/dL Creatinine 0.86 (0.66-1.25) mg/dL Est GFR (CKD-EPI)AfAm >90 (>60 ml/min/1.73 sqM) Est GFR (CKD-EPI)NonAf >90 (>60 ml/min/1.73 sqM) Glucose 143 H (74-99) mg/dL Plasma Lactic Acid [place] (0.7-2.0) mmol/L Calcium 9.6 (8.4-10.2) mg/dL Total Bilirubin 1.5 H (0.2-1.3) mg/dL AST 315 H (17-59) U/L ALT 396 H (4-49) U/L Alkaline Phosphatase 48 (38-126) U/L Total Protein 7.7 (6.3-8.2) g/dL Albumin 4.7 (3.5-5.0) g/dL Lipase 32 (23-300) U/L Urine Color Urine Appearance (Clear) Urine pH (5.0-8.0) Ur Specific [place] (1.001-1.035) Urine Protein (Negative) Urine Glucose (UA) (Negative) Urine Ketones (Negative) Urine Blood (Negative) Urine Nitrite (Negative) Urine Bilirubin (Negative) Urine Urobilinogen (<2.0) mg/dL Ur Leukocyte Esterase (Negative) Urine RBC (0-5) /hpf Urine WBC (0-5) /hpf Ur Squamous Epith Cells (0-4) /hpf Urine Bacteria (None) /hpf Hyaline Casts (0-2) /lpf Urine Mucus (None) /hpf Coronavirus (PCR) Not Detected (Not Detectd) Influenza Type A RNA (Not Detectd) Influenza Type B (PCR) (Not Detectd) 03/05/22 03/05/22 03/05/22 Range/Units 19:12 19:12 19:12 WBC (3.8-10.6) k/uL RBC (4.30-5.90) m/uL Hgb (13.0-17.5) gm/dL Hct (39.0-53.0) % MCV (80.0-100.0) fL MCH (25.0-35.0) pg MCHC (31.0-37.0) g/dL RDW (11.5-15.5) % Plt Count (150-450) k/uL MPV Neutrophils % % Lymphocytes % % Monocytes % % Eosinophils % % Basophils % % Neutrophils # (1.3-7.7) k/uL Lymphocytes # (1.0-4.8) k/uL Monocytes # (0-1.0) k/uL Eosinophils # (0-0.7) k/uL Basophils # (0-0.2) k/uL Sodium (137-145) mmol/L Potassium (3.5-5.1) mmol/L Chloride (98-107) mmol/L Carbon Dioxide (22-30) mmol/L Anion Gap mmol/L BUN (9-20) mg/dL Creatinine (0.66-1.25) mg/dL Est GFR (CKD-EPI)AfAm (>60 ml/min/1.73 sqM) Est GFR (CKD-EPI)NonAf (>60 ml/min/1.73 sqM) Glucose (74-99) mg/dL Plasma Lactic Acid [place] 1.5 (0.7-2.0) mmol/L Calcium (8.4-10.2) mg/dL Total Bilirubin (0.2-1.3) mg/dL AST (17-59) U/L ALT (4-49) U/L Alkaline Phosphatase (38-126) U/L Total Protein (6.3-8.2) g/dL Albumin (3.5-5.0) g/dL Lipase (23-300) U/L Urine Color [place] Urine Appearance Cloudy (Clear) Urine pH 6.0 (5.0-8.0) Ur Specific [place] 1.043 H (1.001-1.035) Urine Protein 2+ H (Negative) Urine Glucose (UA) Trace H (Negative) Urine Ketones Trace H (Negative) Urine Blood Negative (Negative) Urine Nitrite Negative (Negative) Urine Bilirubin 1+ H (Negative) Urine Urobilinogen 3.0 (<2.0) mg/dL Ur Leukocyte Esterase Negative (Negative) Urine RBC 2 (0-5) /hpf Urine WBC 2 (0-5) /hpf Ur Squamous Epith Cells <1 (0-4) /hpf Urine Bacteria Rare H (None) /hpf Hyaline Casts 146 H (0-2) /lpf Urine Mucus Many H (None) /hpf Coronavirus (PCR) (Not Detectd) Influenza Type A RNA Not Detected (Not Detectd) Influenza Type B (PCR) Not Detected (Not Detectd) Disposition Clinical Impression: Fever, Diarrhea, Leukocytosis, Elevated liver enzymes Disposition: HOME SELF-CARE Condition: Stable Instructions (If sedation given, give patient instructions): Fever in Adults (ED) Additional Instructions: Take Motrin 600 mg every 4 hours for the fever. Drink lots of fluid. Take Imod ium for diarrhea if it returns. Follow-up with your primary care doctor for repeat liver enzyme draw on Monday. Please return to the emergency department for any new or worsening symptoms Is patient prescribed a controlled substance at d/c from ED?: No Referrals: Ethan Andrews MD [Primary Care Provider] - 1-2 days Time of Disposition: 21:02
[2022-03-05 21:10] VITALS: BP 104/60; PULSE 75; RESP 16; TEMP 98.2
== END 2022-03-05 21:39 | disposition home or self-care (01) ==
LOC: EC 16:46
DX: R19.7 Diarrhea, unspecified (principal); D72.829 Elevated white blood cell count, unspecified; R74.01 Elevation of levels of liver transaminase levels; I10 Essential (primary) hypertension; Z79.899 Other long term (current) drug therapy; Z20.822 Contact with and (suspected) exposure to COVID-19
CPT/HCPCS: 36415; 80053; 83605; 83690; 85025; 81001; 87502; 87635; 74177; 99284; 96360; Q9967

== ENCOUNTER 2023-12-13 13:25 | Emergency (ER) | payer BC ==
[2023-12-13 14:27] VITALS: TEMP 97.6
--- NOTE | 2023-12-13 14:42 | ED ---
Chest Pain HPI - General Source: patient, RN notes reviewed Mode of arrival: ambulatory Limitations: no limitations <Micheline Valenzuela - Last Filed: 12/13/23 14:40> - General Source: RN notes reviewed, old records reviewed Mode of arrival: ambulatory Limitations: no limitations - History of Present Illness MD Complaint: chest pain -: hour(s) Onset: during rest, during exertion Pain Location: substernal, left chest Pain Radiation: none Severity: moderate Severity scale (1-10): 4 Quality: tightness, aching Consistency: constant, intermittent, now resolved Improves With: nothing Worsens With: nothing Anginal Symptoms: sense of impending doom Other Symptoms: palpitations Treatments Prior to Arrival: none <Kenn Garner - Last Filed: 12/31/23 15:28> - General Chief Complaint: Chest Pain Stated Complaint: Chest pain Time Seen by Provider: 12/13/23 14:40 - History of Present Illness Initial Comments: Quick note: 43-year-old male presented to ER with a chief complaint of left- sided chest pain with radiation to left shoulder. He states this started approximately around 1 PM today. He does report a sharp chest pain with inspiration. He has a past medical history significant of hypertension. He took his blood pressure when pain started and was found to be 180/125. Patient denies any nausea, vomiting or diaphoresis. No history of [place]. (Micheline Valenzuela) This is a 43-year-old male to ER for evaluation of chest pain that started while doing some work around the house at home. Patient had no diaphoresis no shortness of breath occasional chest pain may be worse with a deep breath. No significant recent trauma fevers cough or congestion. Patient does have history of high blood pressure but no other significant family history of heart disease. (Kenn Garner) - Related Data Home Medications Medication Instructions Recorded Confirmed Albuterol Inhaler [Ventolin Hfa 2 puff INHALATION RT-Q4H PRN 12/20/21 12/20/21 Inhaler] Cetirizine HCl [Zyrtec] 10 mg PO DAILY 12/20/21 12/20/21 Cholecalciferol [Vitamin D3 (25 50 mcg PO DAILY 12/20/21 12/20/21 Mcg = 1000 Iu)] Latanoprost [Xalatan 0.005%] 1 drop BOTH EYES HS 12/20/21 12/20/21 amLODIPine [Norvasc] 5 mg PO DAILY 12/20/21 12/20/21 lisinopriL [Zestril] 10 mg PO DAILY 12/20/21 12/20/21 Previous Rx's Medication Instructions Recorded Amoxic-Pot Clav 875-125Mg 1 tab PO BID 10 Days #20 tab 12/28/21 [Augmentin 875-125] predniSONE [Deltasone] 40 mg PO DAILY #8 tab 12/28/21 Allergies Allergy/AdvReac Type Severity Reaction Status Date / Time No Known Allergies Allergy Verified 03/05/22 16:55 Review of Systems ROS Other: All systems not noted in ROS Statement are negative. <Micheline Valenzuela - Last Filed: 12/13/23 14:40> ROS Other: All systems not noted in ROS Statement are negative. <Kenn Garner - Last Filed: 12/31/23 15:28> ROS Statement: Those systems with pertinent positive or pertinent negative responses have been documented in the HPI. EKG Findings - EKG Comments: EKG Findings:: EKG is sinus 90 RI 140 QRS 104 QTc 422 - EKG Results: EKG: interpreted by ERMD <Kenn Garner - Last Filed: 12/31/23 15:28> Past Medical History Past Medical History: Hypertension History of Any Multi-Drug Resistant Organisms: None Reported Past Surgical History: No Surgical Hx Reported Past Psychological History: No Psychological Hx Reported Smoking Status: Never smoker Past Alcohol Use History: None Reported Past Drug Use History: None Reported <Micheline Valenzuela - Last Filed: 12/13/23 14:40> General Exam Limitations: no limitations <Micheline Valenzuela - Last Filed: 12/13/23 14:40> General appearance: alert, in no apparent distress, anxious Head exam: Present: atraumatic, normocephalic, normal inspection Eye exam: Present: normal appearance, PERRL, EOMI. Absent: scleral icterus, conjunctival injection, periorbital swelling ENT exam: Present: normal exam, mucous membranes moist Neck exam: Present: normal inspection. Absent: tenderness, meningismus, lymphadenopathy Respiratory exam: Present: normal lung sounds bilaterally. Absent: respiratory distress, wheezes, rales, rhonchi, stridor Cardiovascular Exam: Present: regular rate, normal rhythm, normal heart sounds. Absent: systolic murmur, diastolic murmur, rubs, gallop, clicks GI/Abdominal exam: Present: soft, normal bowel sounds. Absent: distended, tenderness, guarding, rebound, rigid Extremities exam: Present: normal inspection, full ROM, normal capillary refill. Absent: tenderness, pedal edema, joint swelling, calf tenderness Back exam: Present: normal inspection Neurological exam: Present: alert, oriented X3, CN II-XII intact Psychiatric exam: Present: normal affect, normal mood Skin exam: Present: warm, dry, intact, normal color. Absent: rash <Kenn Garner - Last Filed: 12/31/23 15:28> - General Exam Comments Initial Comments: Visual Physical Exam Vital signs reviewed General: Well-appearing, nontoxic, no acute distress. Head: Normocephalic, atraumatic Eyes: PERRLA, EOMI ENT: Airway patent Chest: Nonlabored breathing Skin: No visual rash, normal skin tone Neuro: Alert and oriented 3 Musculoskeletal: No gross abnormalities (Micheline Valenzuela) Course <Kenn Garner - Last Filed: 12/31/23 15:28> Vital Signs 12/13/23 12/13/23 13:33 17:10 Temperature 97.6 F Pulse Rate 92 74 Respiratory 24 16 Rate Blood Pressure 149/85 154/76 O2 Sat by Pulse 100 98 Oximetry - Reevaluation(s) Reevaluation #1: Medical records reviewed (Kenn Garner) Reevaluation #2: Patient symptoms unchanged (Kenn Garner) Reevaluation #3: Patient informed of results and questions answered (Kenn Garner) Reevaluation #4: Was pt. sent in by a medical professional or institution (, PA, RN EMERGENCY ROOM, urgent care, hospital, or [facility]...) When possible be specific @ -no Did you speak to anyone other than the patient for history (EMS, parent, family, police, friend...)? What history was obtained from this source @ -no Did you review nursing and triage notes (agree or disagree)? Why? @ -agree Are old charts reviewed (outside hosp., previous admission, EMS record, old EKG, old radiological studies, urgent care reports/EKG's, [facility] records)? Report findings @ -yes Differential Diagnosis (chest pain, altered mental status, abdominal pain women, abdominal pain men, vaginal bleeding, weakness, fever, dyspnea, syncope, headache, dizziness, GI bleed, back pain, seizure, CVA, palpatations, mental health, musculoskeletal)? @ -prior EKG interpreted by me (3pts min.). @ -yes X-rays interpreted by me (1pt min.). @ -yes negative for acute disease CT interpreted by me (1pt min.). @ -no U/S interpreted by me (1pt. min.). @ -no What testing was considered but not performed or refused? (CT, X-rays, U/S, labs)? Why? @ -none What meds were considered but not given or refused? Why? @ -none Did you discuss the management of the patient with other professionals (professionals i.e. , PA, RN EMERGENCY ROOM, lab, RT, psych nurse, perinatal social worker, dry cleaner helper, teacher, unclaimed property officer, workshop manager)? Give summary @ -no Was smoking cessation discussed for >3mins.? @ -no Was critical care preformed (if so, how long)? @ -no Were there social determinants of health that impacted care today? How? (Homelessness, low income, unemployed, alcoholism, drug addiction, transportation, low edu. Level, literacy, decrease access to med. care, senior care, rehab)? @ -none Was there de-escalation of care discussed even if they declined (Discuss DNR or withdrawal of care, Hospice)? DNR status @ -no What co-morbidities impacted this encounter? (DM, HTN, Smoking, COPD, CAD, Cancer, CVA, ARF, Chemo, Hep., AIDS, mental health diagnosis, sleep apnea, morbid obesity)? @ -none Was patient admitted / discharged? Hospital course, mention meds given and route, prescriptions, significant lab abnormalities, going to OR and other pertinent info. @ - 43 male to the ER for evaluation regards to chest pain normal EKG normal chest x-ray normal troponin patient feels well and can be discharged home Discharge Undiagnosed new problem with uncertain prognosis? @ -no Drug Therapy requiring intensive monitoring for toxicity (Heparin, Nitro, Insulin, Cardizem)? @ -no Were any procedures done? @ -no Diagnosis/symptom? @ -Chest pain Acute, or Chronic, or Acute on Chronic? @ -Acute Uncomplicated (without systemic symptoms) or Complicated (systemic symptoms)? @ -Complicated Side effects of treatment? @ -no Exacerbation, Progression, or Severe Exacerbation? @ -exacerbation Poses a threat to life or bodily function? How? (Chest pain, [place], [place], pneumonia, PE, COPD, DKA, ARF, appy, cholecystitis, CVA, Diverticulitis, Homicidal, Suicidal, threat to staff... and all critical care pts) @ -yes with chest pain (Kenn Garner) Reevaluation #5: Differential Chest Pain: Stable Angina, Unstable Angina, STEMI, NSTEMI Aortic Dissection, Pneumothorax, Musculoskeletal, Esophageal Spasm GERD, Cholecystitis, Pancreatitis, Zoster, this is not meant to be an all-inclusive list. (Kenn Garner) Chest Pain MDM <Micheline Valenzuela - Last Filed: 12/13/23 14:40> <Kenn Garner - Last Filed: 12/31/23 15:28> - MDM I performed the quick note portion of this chart. Electronically signed by Micheline Valenzuela PA-C (Micheline Valenzuela) 43 male to the ER for evaluation regards to chest pain normal EKG normal chest x-ray normal troponin patient feels well and can be discharged home (Kenn Garner) Disposition <Micheline Valenzuela - Last Filed: 12/13/23 14:40> Is patient prescribed a controlled substance at d/c from ED?: No Time of Disposition: 16:40 <Kenn Garner - Last Filed: 12/31/23 15:28> Clinical Impression: Chest pain Disposition: HOME SELF-CARE Condition: Undetermined Instructions (If sedation given, give patient instructions): Chest Pain (ED) Referrals: Ethan Andrews MD [Primary Care Provider] - 1-2 days
[2023-12-13 16:12] LABS: ALT 105 U/L (4-49); AST 54 U/L (17-59); African American GFR (CKD) >90 (>60 ml/min/1.73 sqM); Albumin 4.6 g/dL (3.5-5.0); Alkaline Phosphatase 64 U/L (38-126); Anion Gap 8 mmol/L; Blood Urea Nitrogen 12 mg/dL (9-20); Calcium 10.1 mg/dL (8.4-10.2); Carbon Dioxide 29 mmol/L (22-30); Chloride 104 mmol/L (98-107); Glucose 104 mg/dL (74-99); Magnesium 1.9 mg/dL (1.6-2.3); Non-African American GFR(CKD) >90 (>60 ml/min/1.73 sqM); Potassium 3.8 mmol/L (3.5-5.1); Sodium 141 mmol/L (137-145); Total Bilirubin 0.7 mg/dL (0.2-1.3); Total Protein 7.6 g/dL (6.3-8.2)
[2023-12-13 16:18] LABS: Partial Thromboplastin Time 24.6 sec (22.0-30.0); Prothrombin Time 10.8 sec (10.0-12.5)
--- NOTE | 2023-12-13 16:19 | XR ---
EXAMINATION TYPE: XR chest 2V DATE OF EXAM: 12/13/2023 COMPARISON: 01/14/2022 HISTORY: 43-year-old male left-sided chest pain TECHNIQUE: PA and lateral views FINDINGS: Heart upper limits of normal in size, mild interstitial prominence has a chronic appearance. No conso lidation or pleural effusion. IMPRESSION: Heart upper limits of normal in size. Chronic appearing changes. No definite acute process.
[2023-12-13 16:22] LABS: Basophils % (A) 1 %; Eosinophils # (A) 0.7 k/uL (0-0.7); Eosinophils % (A) 8 %; HCT 44.6 % (39.0-53.0); HGB 15.1 gm/dL (13.0-17.5); Lymphocytes # (A) 1.7 k/uL (1.0-4.8); Lymphocytes % (A) 18 %; MCH 29.4 pg (25.0-35.0); MCHC 33.8 g/dL (31.0-37.0); Mean Platelet Volume 8.3; Monocytes % (A) 11 %; Neutrophils # (A) 5.6 k/uL (1.3-7.7); Neutrophils % (A) 61 %; Platelet Count 200 k/uL (150-450); RBC 5.12 m/uL (4.30-5.90); RDW 13.6 % (11.5-15.5); WBC 9.3 k/uL (3.8-10.6)
[2023-12-13 17:49] VITALS: BP 154/76; PULSE 74; RESP 16
== END 2023-12-13 17:11 | disposition home or self-care (01) ==
LOC: EC 13:25
DX: R07.89 Other chest pain (principal)
CPT/HCPCS: 36415; 71046; 80053; 83735; 84484; 85025; 85610; 85730; 93005; 99285